=== PATIENT | male | born 1985 | race Caucasian/White ===

== ENCOUNTER 2024-08-03 17:50 | Outpatient (OUT) | payer OTHER, SELFPAY ==
--- NOTE | 2024-08-03 18:05 | XR_ITS ---
[address] [address] Patient Name: JULIO CARUSO MRN: [id number] date: 1985 Sex: M Assigned Patient Location: [facility] Current Patient Location: [facility] Accession/Order Number: [id number] Exam Date: 08/03/2024 18:00 Report Date: 08/03/2024 19:56 At the request of: ED HUIZAR Procedure: XR chest 2V EXAM: XR chest 2V HISTORY: Positive TB screening COMPARISON: None. TECHNIQUE: PA, lateral chest x-ray. FINDINGS: Lungs clear without infiltrate or edema or focal lung lesion/calcification. Normal heart size and mediastinal contour. No pleural effusion or pneumothorax. Incidental pectus deformity on the lateral view. No focal bone lesion. XR/XR chest 2V IMPRESSION: Negative chest x-ray, clear lungs. Electronically authenticated by: STEPHANE LAO Date: 08/03/2024 19:56
== END 2024-08-03 17:51 | disposition home or self-care (01) ==
PROVIDERS: Visit Provider Nurse Practitioner Primary Care
DX: R76.11 Nonspecific reaction to tuberculin skin test without active tuberculosis (principal)
CPT/HCPCS: 71046